=== PATIENT | male | born 1970 | race African-American/Black ===

== ENCOUNTER 2021-09-18 07:00 | Outpatient (CLI) | payer OTHER | END 2021-09-18 07:30 | disposition home or self-care (01) | LOC: PPH VACUNA 07:00 | PROVIDERS: ATTEND Emergency Medicine Pediatric Emergency Medicine | DX: Z23 Encounter for immunization (principal) ==

== ENCOUNTER 2021-09-19 09:00 | Outpatient (CLI) | payer OTHER | END 2021-09-19 09:15 | disposition home or self-care (01) | LOC: PPH VACUNA 09:00 | PROVIDERS: ATTEND Emergency Medicine Pediatric Emergency Medicine | DX: Z23 Encounter for immunization (principal) | CPT/HCPCS: 90686; G0008 ==